=== PATIENT | male | born 1965 | race American Indian/Alaskan Native ===

== ENCOUNTER 2020-11-23 17:41 | Inpatient (IN) | payer SELFPAY ==
[2020-11-23 20:56] LABS: Basophils % (Auto) 0.5 % (0.0-1.8); Eosinophils % (Auto) 0.4 % (0.0-4.3); Hematocrit 47.3 % (35.5-45.6); Hemoglobin 16.7 gm/dl (11.8-15.2); Lymphocytes # (Auto) 0.7 K/mm3 (1.2-5.4); Lymphocytes % (Auto) 10.2 % (13.4-35.0); Mean Corpuscular HGB Conc 35 % (32-34); Mean Corpuscular Volume 98 fl (84-94); Monocytes # (Auto) 0.7 K/mm3 (0.0-0.8); Monocytes % (Auto) 10.9 % (0.0-7.3); Platelet Count 266 K/mm3 (140-440); Red Blood Count 4.85 M/mm3 (3.65-5.03); Red Cell Distribution Width 14.2 % (13.2-15.2)
[2020-11-23 21:17] LABS: Alanine Aminotransferase 127 units/L (7-56); Albumin 4.6 g/dL (3.9-5); Bilirubin,Direct 0.4 mg/dL (0-0.2); Blood Urea Nitrogen 9 mg/dL (9-20); Calcium 9.4 mg/dL (8.4-10.2); Hemolysis Index 48
[2020-11-23 21:18] LABS: BUN/Creatinine Ratio 13
[2020-11-23] MEDS ORDERED: ONDANSETRON 4 MG/2 ML INJ IV STA (22:10)
[2020-11-23] MEDS ORDERED: MORPHINE 4 MG/1 ML INJ IV STA (22:10)
[2020-11-23] MEDS ORDERED: SODIUM CHLORIDE 0.9% 1000 ML 1,000 ML IV ONE (22:10)
--- NOTE | 2020-11-23 22:17 | Emergency Department Report ---
ED Abdominal Pain HPI - General Chief Complaint: Abdominal Pain Stated Complaint: ABD PAIN, VOMITING Time Seen by Provider: 11/23/20 19:59 Source: patient Mode of arrival: Ambulatory Limitations: No Limitations - History of Present Illness Initial Comments: 55-year-old -[place] male alcoholic presents emergency department complaining of having increased EtOH utilization of the holidays and since that time is reports a 1 to 1-1/2-day history of nausea vomiting and abdominal pain. States that the symptoms actually off and on. Ports no diarrhea, no fever, chills, sweats does have a explain his weakness and fatigue. Pain is sharp and throbbing worse with palpation normal eating MD Complaint: abdominal pain -: Gradual Location: epigastric Radiation: epigastric Migration to: no migration Quality: aching, dull Consistency: constant Associated Symptoms: denies: dysuria, hematemesis, melena, hematuria, anorexia - Related Data Previous Rx's Medication Instructions Recorded Last Taken Type Folic Acid [Folvite] 1 mg PO DAILY #30 tablet 11/26/20 Unknown Rx Multivitamin Tab [Multiple Vitamin 1 each PO DAILY #30 tablet 11/26/20 Unknown Rx TAB (Theragran)] Thiamine [Vitamin B-1] 100 mg PO QDAY #30 tablet 11/26/20 Unknown Rx amLODIPine 5 mg PO QDAY #30 tablet 11/26/20 Unknown Rx traMADoL [Ultram 50 MG tab] 50 mg PO Q6HR PRN #12 tablet 11/26/20 Unknown Rx Allergies Allergy/AdvReac Type Severity Reaction Status Date / Time No Known Allergies Allergy Unverified 11/23/20 18:50 ED Review of Systems ROS: Stated complaint: ABD PAIN, VOMITING Other details as noted in HPI Comment: All other systems reviewed and negative ED Past Medical Hx - Past Medical History Previous Medical History?: No - Surgical History Past Surgical History?: No - Medications Home Medications: Home Medications Medication Instructions Recorded Confirmed Last Taken Type Folic Acid [Folvite] 1 mg PO DAILY #30 tablet 11/26/20 Unknown Rx Multivitamin Tab [Multiple Vitamin 1 each PO DAILY #30 tablet 11/26/20 Unknown Rx TAB (Theragran)] Thiamine [Vitamin B-1] 100 mg PO QDAY #30 tablet 11/26/20 Unknown Rx amLODIPine 5 mg PO QDAY #30 tablet 11/26/20 Unknown Rx traMADoL [Ultram 50 MG tab] 50 mg PO Q6HR PRN #12 tablet 11/26/20 Unknown Rx ED Physical Exam - General Limitations: No Limitations General appearance: alert, in no apparent distress - Head Head exam: Present: atraumatic, normocephalic - Eye Eye exam: Present: normal appearance, PERRL, EOMI Pupils: Present: normal accommodation - ENT ENT exam: Present: normal exam, normal orophraynx, mucous membranes moist, TM's normal bilaterally - Neck Neck exam: Present: normal inspection, full ROM - Respiratory Respiratory exam: Present: normal lung sounds bilaterally, chest wall tenderness. Absent: respiratory distress, wheezes, rales - Cardiovascular Cardiovascular Exam: Present: regular rate, normal rhythm. Absent: systolic murmur, diastolic murmur, rubs, gallop - GI/Abdominal GI/Abdominal exam: Present: soft, normal bowel sounds - Rectal Rectal exam: Present: deferred - Extremities Exam Extremities exam: Present: normal inspection, normal capillary refill - Back Exam Back exam: Present: normal inspection. Absent: CVA tenderness (R), CVA tendern ess (L) - Neurological Exam Neurological exam: Present: alert, oriented X3, CN II-XII intact - Psychiatric Psychiatric exam: Present: normal affect, normal mood - Skin Skin exam: Present: warm, dry, intact, normal color. Absent: rash ED Course Vital Signs 11/23/20 11/24/20 18:51 01:38 Temperature 98.1 F 97.9 F Pulse Rate 71 84 Respiratory 20 18 Rate Blood Pressure 162/88 Blood Pressure 152/84 [Left] O2 Sat by Pulse 100 99 Oximetry ED Medical Decision Making - Lab Data Result diagrams: 11/25/20 07:36 11/25/20 07:36 - Radiology Data Radiology results: report reviewed - Medical Decision Making This patient presents with abdominal pain appears to be secondary to panc reatitis.. This 55-year-old -[place]an alcoholic presents to the ED for abdominal pain nausea vomiting and was found to have a urgent etiology for the abdominal pain. I have a very low suspicion for appendicitis, ischemic bowel, bowel perforation, or any other life threatening disease. I have discussed with the patient the level of uncertainty with undifferentiated abdominal pain and based on the findings of his need for admission was warranted. Case was discussed with the hospitalist as well as the attending who agrees with recommendation for admission. I discussed with the patient that this presentation today for abdominal pain could represent a significant risk for an acute abdominal process. Although the tests in the ED 2 points of pancreatitis there is still a possibility of a process such as appendicitis, diverticulitis, cholecystitis, ulcer, early bowel obstruction, mesenteric ischemia, kidney stone, or even kidney infection which could subsequently cause disability or . The patient understands this risk and need for admission for treatment and observation due to the possibility of significant surgical or medical process. . Critical care attestation.: If time is entered above; I have spent that time in minutes in the direct care of this critically ill patient, excluding procedure time. ED Disposition Clinical Impression: Pancreatitis, acute, H/O ETOH abuse, Pancreatitis, Alcohol abuse Disposition: 09 OP ADMIT IP TO THIS HOSP Is pt being admited?: No Does the pt Need Aspirin: No Condition: Stable
[2020-11-24] MEDS ORDERED: ACETAMINOPHEN 325 MG TAB PO PRN (00:16)
[2020-11-24] MEDS ORDERED: MORPHINE 2 MG/1 ML INJ IV PRN (00:16)
[2020-11-24] MEDS ORDERED: hydrALAZINE 20 MG/1 ML INJ IV PRN (00:18)
[2020-11-24] MEDS ORDERED: LORazepam 2 MG/ML VIAL IV PRN (00:19)
[2020-11-24] MEDS ORDERED: THIAMINE 100 MG, FOLIC ACID 1 MG, MULTIPLE VITAMIN INJ, ADULT 10 ML in SODIUM CHLORIDE ... IV ONE (00:20)
--- NOTE | 2020-11-24 00:25 | History and Physical Report ---
History of Present Illness Date of examination: 11/24/20 Date of admission: 11/24/2020 Chief complaint: Abdominal pain History of present illness: 55-year-old -[place] Islander male alcoholic was brought to the emergency room because of having increased EtOH utilization of the holidays and since that time is reports a 1 to 1-1/2-day history of nausea vomiting and abdominal pain. States that the symptoms actually off and on. Ports no diarrhea, no fever, chills, sweats does have a explain his weakness and fatigue. Pain is sharp and throbbing worse with palpation normal eating In the emergency room patient is found to have acute pancreatitis. Patient lipase is 2255, AST 88 and ALT 127 Past History Past Medical History: other (Alcoholic) Medications and Allergies Allergies Allergy/AdvReac Type Severity Reaction Status Date / Time No Known Allergies Allergy Unverified 11/23/20 18:50 Review of Systems Gastrointestinal: abdominal pain, nausea, vomiting Exam - Constitutional Vitals: Temp Pulse Resp BP Pulse Ox 98.1 F 71 20 162/88 100 11/23/20 18:51 11/23/20 18:51 11/23/20 18:51 11/23/20 18:51 11/23/20 18:51 General appearance: Present: no acute distress, well-nourished - EENT Eyes: Present: PERRL ENT: hearing intact, clear oral mucosa - Neck Neck: Present: supple, normal ROM - Respiratory Respiratory effort: normal Respiratory: bilateral: CTA - Cardiovascular Heart Sounds: Present: S1 & S2. Absent: rub, click - Extremities Extremities: pulses symmetrical, No edema Peripheral Pulses: within normal limits - Abdominal General gastrointestinal: Present: soft, tender, non-distended, normal bowel sounds Male genitourinary: Present: normal - Integumentary Integumentary: Present: clear, warm, dry - Musculoskeletal Musculoskeletal: gait normal, strength equal bilaterally - Psychiatric Psychiatric: appropriate mood/affect, intact judgment & insight - Neurologic Neurologic: CNII-XII intact, moves all extremities Results - Labs CBC & Chem 7: 11/23/20 20:34 11/23/20 20:34 Labs: Laboratory Last Values WBC 6.7 K/mm3 (4.5-11.0) 11/23/20 20:34 RBC 4.85 M/mm3 (3.65-5.03) 11/23/20 20:34 Hgb 16.7 gm/dl (11.8-15.2) H 11/23/20 20:34 Hct 47.3 % (35.5-45.6) H 11/23/20 20:34 MCV 98 fl (84-94) H 11/23/20 20:34 MCH 34 pg (28-32) H 11/23/20 20:34 MCHC 35 % (32-34) H 11/23/20 20:34 RDW 14.2 % (13.2-15.2) 11/23/20 20:34 Plt Count 266 K/mm3 (140-440) 11/23/20 20:34 Lymph % (Auto) 10.2 % (13.4-35.0) L 11/23/20:34 [place] % (Auto) 10.9 % (0.0-7.3) H 11/23/20 20:34 Eos % (Auto) 0.4 % (0.0-4.3) 11/23/20:34 Baso % (Auto) 0.5 % (0.0-1.8) 11/23/20:34 Lymph # (Auto) 0.7 K/mm3 (1.2-5.4) L 11/23/20:34 [place] # (Auto) 0.7 K/mm3 (0.0-0.8) 11/23/20 20:34 Eos # (Auto) 0.0 K/mm3 (0.0-0.4) 11/23/20:34 Baso # (Auto) 0.0 K/mm3 (0.0-0.1) 11/23/20 20:34 Seg Neutrophils % 78.0 % (40.0-70.0) H 11/23/20 20:34 Seg Neutrophils # 5.3 K/mm3 (1.8-7.7) 11/23/20 20:34 Sodium 138 mmol/L (137-145) 11/23/20 20:34 Potassium 4.1 mmol/L (3.6-5.0) 11/23/20 20:34 Chloride 96.6 mmol/L (98-107) L 11/23/20 20:34 Carbon Dioxide 24 mmol/L (22-30) 11/23/20 20:34 Anion Gap 22 mmol/L 11/23/20 20:34 BUN 9 mg/dL (9-20) 11/23/20 20:34 Creatinine 0.7 mg/dL (0.8-1.3) L 11/23/20 20:34 Estimated GFR > 60 ml/min 11/23/20 20:34 BUN/Creatinine Ratio 13 % 11/23/20 20:34 Glucose 92 mg/dL (75-100) 11/23/20 20:34 Calcium 9.4 mg/dL (8.4-10.2) 11/23/20 20:34 Total Bilirubin 1.60 mg/dL (0.1-1.2) H 11/23/20 20:34 Direct Bilirubin 0.4 mg/dL (0-0.2) H 11/23/20 20:34 Indirect Bilirubin 1.2 mg/dL 11/23/20 20:34 AST 88 units/L (5-40) H 11/23/20 20:34 ALT 127 units/L (7-56) H 11/23/20 20:34 Alkaline Phosphatase 90 units/L (35-129) 11/23/20 20:34 Total Protein 7.0 g/dL (6.3-8.2) 11/23/20 20:34 Albumin 4.6 g/dL (3.9-5) 11/23/20 20:34 Albumin/Globulin Ratio 1.9 % 11/23/20 20:34 Lipase 2255 units/L (13-60) H 11/23/20 20:34 Assessment and Plan VTE prophylaxis?: Chemical Plan of care discussed with patient/family: Yes - Patient Problems (1) Pancreatitis Status: Acute Plan to address problem: Admit the patient to the medical floor. N.p.o. D5 half-normal saline at the rate of 100 cc/h. Protonix 40 mg IV every 12 hours. Zofran 4 mg every 8 hours as needed. Dilaudid 1 mg IV every 3 hours as needed. We will recheck the lipase CMP in the morning. Will consult GI if needed in the morning. We also do a CT scan of the abdomen and pelvis (2) Alcohol abuse Status: Acute Plan to address problem: Patient is counseled regarding quit drinking. Will refer the patient to the outpatient Alcoholics Anonymous group (3) Transaminitis Status: Acute Plan to address problem: We will recheck CMP in the morning. If needed will consult GI in the morning. Patient counseled to quit drinking alcohol (4) DVT prophylaxis Status: Acute Plan to address problem: Heparin 5000 units subcu every 8 hours for DVT prophylaxis. Protonix 40 mg IV every 12 hours for GI prophylaxis. Patient is a full code
[2020-11-24] MEDS: HYDROmorphone 1 MG/1 ML INJ IV PRN ×6 (01:01→21:14)
--- NOTE | 2020-11-24 02:10 | Cat Scan Report ---
CT ABDOMEN AND PELVIS WITH CONTRAST INDICATION / CLINICAL INFORMATION: Question possible Pancreatitis. TECHNIQUE: Axial CT images were obtained through the abdomen and pelvis after 100 cc Omnipaque 300 milligrams pe rcent IV contrast. All CT scans at this location are performed using CT dose reduction for ALARA by means of automated exposure control. COMPARISON: None available. FINDINGS: LOWER CHEST: No significant abnormality. LIVER: Diffuse fatty infiltration of liver. GALLBLADDER: No significant abnormality. BILE DUCTS: No significant abnormality. PANCREAS: Peripancreatic inflammatory changes present with minimum fluid. No evidence of an abscess o r pseudocyst SPLEEN: No significant abnormality. ADRENALS: No significant abnormality. RIGHT KIDNEY and URETER: No significant abnormality. LEFT KIDNEY and URETER: Punctate left renal calculus STOMACH and SMALL BOWEL: No significant abnormality. COLON: No significant abnormality. APPENDIX: No significant abnormality. PERITONEUM: No free fluid. No free air. No fluid collection. LYMPH NODES: No significant adenopathy. AORTA and ARTERIES: No significant abnormality. IVC and VEINS: No significant abnormality. URINARY BLADDER: No significant abnormality. REPRODUCTIVE ORGANS: No significant abnormality. ADDITIONAL FINDINGS: None. SKELETAL SYSTEM: No significant abnormality. IMPRESSION: 1. CT findings consistent with acute pancreatitis 2. Hepatic steatosis 3. Left nephrolithiasis Signer Name: Manan Duckworth MD Signed: 11/24/2020 2:05 AM Workstation Name: [id number]
[2020-11-24] MEDS: HEPARIN 5,000 UNIT/1 ML VIAL SUB-Q SCH ×3 (06:18→21:13)
[2020-11-24] MEDS: IPRATROPIUM/ALBUTEROL SULFATE 3 ML AMPUL.NEB IH SCH ×4 (07:50→20:21)
[2020-11-24] MEDS: PANTOPRAZOLE 40 MG INJ IV SCH ×3 (08:09→21:14)
[2020-11-24] MEDS: D5W/0.45% NACL 1,000 ML IV SCH ×2 (13:47→21:12)
[2020-11-24] MEDS: NICOTINE 14 MG/24 HR PATCH TD SCH (13:59)
--- NOTE | 2020-11-24 15:37 | Event Note ---
Date: 11/24/20 Patient with acute pancreatitis likely due to alcohol abuse. I have seen and examined him. Consult GI. Keep NPO. Tristan re-evaluate in am.
--- NOTE | 2020-11-24 16:49 | Gastroenterology Consultation ---
History of Present Illness - Reason for Consult Consult date: 11/24/20 acute pancreatitis Requesting physician: LYNNETTE KEYS - History of Present Illness The patient is a 55 yo aam who presents with abdominal pain and nausea/vomiting, found to have acute pancreatitis on admission. Pt with h/o alcohol abuse (pint of vodka daily), progressive worsening of abd pain last 1-2 weeks. states he had similar sx's/diagnosis ~8 years ago due to alcohol pancreatitis. last alcohol intake day prior to admission. no fevers/chills. tolerating liquids/water at bedside w/o n/v. Past History Past Medical History: other (Alcoholic) Medications and Allergies Allergies Allergy/AdvReac Type Severity Reaction Status Date / Time No Known Allergies Allergy Unverified 11/23/20 18:50 Home Medications Medication Instructions Recorded Confirmed Last Taken Type No Known Home Medications [No 11/24/20 11/24/20 Unknown History Reported Home Medications] Active Meds: Active Medications Acetaminophen (Acetaminophen 325 Mg Tab) 650 mg PO Q4H PRN PRN Reason: Pain MILD(1-3)/Fever >100.5/ROSENBAUM Albuterol/Ipratropium (Ipratropium/Albuterol Sulfate 3 Ml Ampul.Neb) 1 ampul IH Q6HRT PIYUSH Last Admin: 11/24/20 15:13 Dose: 1 ampul Documented by: Heparin Sodium (Porcine) (Heparin 5,000 Unit/1 Ml Vial) 5,000 unit SUB-Q Q8HR PIYUSH Last Admin: 11/24/20 13:30 Dose: 5,000 unit Documented by: Hydralazine HCl (Hydralazine 20 Mg/1 Ml Inj) 10 mg IV Q6H PRN PRN Reason: htn Hydromorphone HCl (Hydromorphone 1 Mg/1 Ml Inj) 1 mg IV Q3H PRN PRN Reason: Pain , Severe (7-10) Last Admin: 11/24/20 12:48 Dose: 1 mg Documented by: Dextrose/Sodium Chloride (D5/0.45ns) 1,000 mls @ 100 mls/hr IV DIRECT PIYUSH Last Admin: 11/24/20 13:47 Dose: 100 mls/hr Documented by: Thiamine HCl 100 mg/ Folic Acid 1 mg/ Multivitamins/Minerals 10 ml/ Sodium Chloride 1,011.2 mls @ 252.8 mls/hr IV QDAY@2200 [facility] Lorazepam (Lorazepam 2 Mg/Ml Vial) 2 mg IV Q1HR PRN PRN Reason: CIWA-Ar 8-15 Morphine Sulfate (Morphine 2 Mg/1 Ml Inj) 2 mg IV Q4H PRN PRN Reason: Pain, Moderate (4-6) Nicotine (Nicotine 14 Mg/24 Hr Patch) 14 mg TD QDAY [facility] Last Admin: 11/24/20 13:59 Dose: 14 mg Documented by: Ondansetron HCl (Ondansetron 4 Mg/2 Ml Inj) 4 mg IV Q8H PRN PRN Reason: Nausea And Vomiting Pantoprazole Sodium (Pantoprazole 40 Mg Inj) 40 mg IV BID [facility] Last Admin: 11/24/20 12:01 Dose: Not Given Documented by: Sodium Chloride (Sodium Chloride 0.9% 10 Ml Flush Syringe) 10 ml IV BID [facility] Last Admin: 11/24/20 12:02 Dose: 10 ml Documented by: Sodium Chloride (Sodium Chloride 0.9% 10 Ml Flush Syringe) 10 ml IV PRN PRN PRN Reason: LINE FLUSH reviewed/updated patient's home and current medications Review of Systems - Review of Systems All systems: negative (per HPI) Exam - Constitutional Vital Signs: Temp Pulse Resp BP Pulse Ox 98.8 F 58 L 18 134/78 88 11/24/20 16:32 11/24/20 16:32 11/24/20 16:32 11/24/20 16:32 11/24/20 16:32 General appearance: no acute distress - EENT Eyes: PERRL, EOM intact - Respiratory Respiratory effort: normal Respiratory: bilateral: CTA - Cardiovascular Rhythm: regular Heart Sounds: Present: S1 & S2 - Gastrointestinal General gastrointestinal: Present: soft, tender (epigastric ttp), non-distended - Integumentary Integumentary: Present: clear, warm - Psychiatric Psychiatric: appropriate mood/affect - Labs CBC & Chem 7: 11/23/20 20:34 11/23/20 20:34 Lab Results: Laboratory Results - last 24 hr 11/23/20 11/23/20 20:34 20:34 WBC 6.7 RBC 4.85 Hgb 16.7 H Hct 47.3 H MCV 98 H MCH 34 H MCHC 35 H RDW 14.2 Plt Count 266 Lymph % (Auto) 10.2 L [place] % (Auto) 10.9 H Eos % (Auto) 0.4 Baso % (Auto) 0.5 Lymph # (Auto) 0.7 L [place] # (Auto) 0.7 Eos # (Auto) 0.0 Baso # (Auto) 0.0 Seg Neutrophils % 78.0 H Seg Neutrophils # 5.3 Sodium 138 Potassium 4.1 Chloride 96.6 L Carbon Dioxide 24 Anion Gap 22 BUN 9 Creatinine 0.7 L Estimated GFR > 60 BUN/Creatinine Ratio 13 Glucose 92 Calcium 9.4 Total Bilirubin 1.60 H Direct Bilirubin 0.4 H Indirect Bilirubin 1.2 AST 88 H ALT 127 H Alkaline Phosphatase 90 Total Protein 7.0 Albumin 4.6 Albumin/Globulin Ratio 1.9 Lipase 2255 H - Imaging CT Scan: report reviewed Assessment and Plan 1. Acute pancreatitis - likely from alcohol. elevated liver enzymes which could be alcohol related liver disease, will obtain RUQ US to evaluate for gallstones. cont IVF's, supportive care, and can try clears as tolerated. trend liver enzymes and monitor for alcohol withdrawal.
[2020-11-24] MEDS: ONDANSETRON 4 MG/2 ML INJ IV PRN ×2 (16:56→21:13)
[2020-11-24] MEDS ORDERED: NICOTINE 14 MG/24 HR PATCH TD ONE (21:59)
[2020-11-24] MEDS ORDERED: THIAMINE 100 MG, FOLIC ACID 1 MG, MULTIPLE VITAMIN INJ, ADULT 10 ML in SODIUM CHLORIDE ... IV SCH (22:00)
[2020-11-25] MEDS: HEPARIN 5,000 UNIT/1 ML VIAL SUB-Q SCH ×3 (05:28→21:31)
[2020-11-25 07:57] LABS: Basophils % (Auto) 0.3 % (0.0-1.8); Eosinophils # (Auto) 0.3 K/mm3 (0.0-0.4); Eosinophils % (Auto) 4.9 % (0.0-4.3); Hematocrit 44.6 % (35.5-45.6); Hemoglobin 15.8 gm/dl (11.8-15.2); Lymphocytes # (Auto) 1.4 K/mm3 (1.2-5.4); Lymphocytes % (Auto) 22.7 % (13.4-35.0); Mean Corpuscular HGB Conc 36 % (32-34); Mean Corpuscular Volume 98 fl (84-94); Monocytes # (Auto) 0.8 K/mm3 (0.0-0.8); Monocytes % (Auto) 12.7 % (0.0-7.3); Platelet Count 208 K/mm3 (140-440); Red Blood Count 4.54 M/mm3 (3.65-5.03); Red Cell Distribution Width 13.8 % (13.2-15.2)
[2020-11-25 08:17] LABS: Alanine Aminotransferase 76 units/L (7-56); Blood Urea Nitrogen 6 mg/dL (9-20); Calcium 8.6 mg/dL (8.4-10.2); Hemolysis Index 85
[2020-11-25 08:20] LABS: BUN/Creatinine Ratio 10
[2020-11-25] MEDS: HYDROmorphone 1 MG/1 ML INJ IV PRN ×2 (09:01→16:07)
[2020-11-25] MEDS: PANTOPRAZOLE 40 MG INJ IV SCH ×2 (09:02→21:31)
[2020-11-25] MEDS: NICOTINE 14 MG/24 HR PATCH TD SCH (09:02)
--- NOTE | 2020-11-25 11:17 | Progress Note ---
Assessment and Plan Assessment and plan: Acute pancreatitis due to alcohol use Abdominal pain improving. Patient was NPO but will start clear liquid since abdominal pain improvbing lipase level down to 281 from 2255 two days ago US abd shows hepatic steatosis but no gallstones Dilaudid prn for pain d/c Morphine, Alcohol use I counseled him on quitting alcohol Transaminitis due to Alcohol use Monitor LFts Full code status Hopefully d/c home in 1-2 days. History Interval history: Patient with acute pancreatitis due to alcohol use less abdominal pain Hospitalist Physical - Constitutional Vitals: Temp Pulse Resp BP Pulse Ox 98.7 F 113 H 20 124/89 98 11/25/20 05:00 11/25/20 05:00 11/25/20 05:00 11/25/20 05:00 11/25/20 09:59 General appearance: Present: no acute distress, well-nourished - EENT Eyes: Present: PERRL ENT: hearing intact - Neck Neck: Present: supple, normal ROM - Respiratory Respiratory: bilateral: CTA, negative: rales, rhonchi, wheezing - Cardiovascular Rhythm: regular Heart Sounds: Present: S1 & S2 (reg). Absent: systolic murmur, rub - Extremities Extremities: No edema - Abdominal General gastrointestinal: soft, tender (mild), non-distended, normal bowel sounds - Integumentary Integumentary: Present: clear, warm, dry - Psychiatric Psychiatric: appropriate mood/affect, intact judgment & insight - Neurologic Neurologic: CNII-XII intact, other (AAO X 3) Results - Labs CBC & Chem 7: 11/25/20 07:36 11/25/20 07:36 Labs: Laboratory Last Values WBC 6.2 K/mm3 (4.5-11.0) 11/25/20 07:36 RBC 4.54 M/mm3 (3.65-5.03) 11/25/20 07:36 Hgb 15.8 gm/dl (11.8-15.2) H 11/25/20 07:36 Hct 44.6 % (35.5-45.6) 11/25/20 07:36 MCV 98 fl (84-94) H 11/25/20 07:36 MCH 35 pg (28-32) H 11/25/20 07:36 MCHC 36 % (32-34) H 11/25/20 07:36 RDW 13.8 % (13.2-15.2) 11/25/20 07:36 Plt Count 208 K/mm3 (140-440) 11/25/20 07:36 Lymph % (Auto) 22.7 % (13.4-35.0) 11/25/20 07:36 [place] % (Auto) 12.7 % (0.0-7.3) H 11/25/20 07:36 Eos % (Auto) 4.9 % (0.0-4.3) H 11/25/20 07:36 Baso % (Auto) 0.3 % (0.0-1.8) 11/25/20 07:36 Lymph # (Auto) 1.4 K/mm3 (1.2-5.4) 11/25/20 07:36 [place] # (Auto) 0.8 K/mm3 (0.0-0.8) 11/25/20 07:36 Eos # (Auto) 0.3 K/mm3 (0.0-0.4) 11/25/20 07:36 Baso # (Auto) 0.0 K/mm3 (0.0-0.1) 11/25/20 07:36 Seg Neutrophils % 59.4 % (40.0-70.0) 11/25/20 07:36 Seg Neutrophils # 3.7 K/mm3 (1.8-7.7) 11/25/20 07:36 Sodium 135 mmol/L (137-145) L 11/25/20 07:36 Potassium 3.7 mmol/L (3.6-5.0) 11/25/20 07:36 Chloride 98.0 mmol/L (98-107) 11/25/20 07:36 Carbon Dioxide 21 mmol/L (22-30) L 11/25/20 07:36 Anion Gap 20 mmol/L 11/25/20 07:36 BUN 6 mg/dL (9-20) L 11/25/20 07:36 Creatinine 0.6 mg/dL (0.8-1.3) L 11/25/20 07:36 Estimated GFR > 60 ml/min 11/25/20 07:36 BUN/Creatinine Ratio 10 % 11/25/20 07:36 Glucose 82 mg/dL (75-100) 11/25/20 07:36 Calcium 8.6 mg/dL (8.4-10.2) 11/25/20 07:36 Total Bilirubin 2.40 mg/dL (0.1-1.2) H 11/25/20 07:36 Direct Bilirubin 0.4 mg/dL (0-0.2) H 11/23/20 20:34 Indirect Bilirubin 1.2 mg/dL 11/23/20 20:34 AST 56 units/L (5-40) H 11/25/20 07:36 ALT 76 units/L (7-56) H 11/25/20 07:36 Alkaline Phosphatase 75 units/L (35-129) 11/25/20 07:36 Total Protein 6.1 g/dL (6.3-8.2) L 11/25/20 07:36 Albumin 4.0 g/dL (3.9-5) 11/25/20 07:36 Albumin/Globulin Ratio 1.9 % 11/25/20 07:36 Lipase 281 units/L (13-60) H 11/25/20 07:36 Nasal Screen MRSA (PCR) Negative (Negative) 11/24/20 Unknown Vega/IV: Voiding Method Toilet Active Medications - Current Medications Current Medications: Generic Name Dose Route Start Last Admin Trade Name Freq PRN Reason Stop Dose Admin Acetaminophen 650 mg 11/24/20 00:16 Acetaminophen 325 Mg Tab PO Q4H PRN Pain MILD(1-3)/Fever >100.5/ROSENBAUM Folic Acid 1 mg 11/26/20 10:00 Folic Acid 1 Mg Tab PO DAILY PIYUSH Heparin Sodium (Porcine) 5,000 unit 11/24/20 06:00 11/25/20 05:28 Heparin 5,000 Unit/1 Ml Vial SUB-Q 5,000 unit Q8HR PIYUSH Administration Hydralazine HCl 10 mg 11/24/20 00:18 Hydralazine 20 Mg/1 Ml Inj IV Q6H PRN htn Dextrose/Sodium Chloride 1,000 mls @ 100 mls/hr 11/24/20 01:00 11/24/20 21:12 D5/0.45ns IV 100 mls/hr DIRECT PIYUSH Administration Thiamine HCl 100 mg/ Folic 1,011.2 mls @ 125 mls/hr 11/25/20 14:00 Acid 1 mg/ Multivitamins/ IV 11/25/20 22:05 Minerals 10 ml/ Sodium ONCE ONE Chloride Lorazepam 2 mg 11/24/20 00:19 Lorazepam 2 Mg/Ml Vial IV Q1HR PRN CARLOS-Jose De Jesus 8-15 Multivitamins 1 each 11/26/20 10:00 Multivitamins ,Therapeutic Tab PO DAILY PIYUSH Nicotine 14 mg 11/24/20 14:00 11/25/20 09:02 Nicotine 14 Mg/24 Hr Patch TD 14 mg QDAY PIYUSH Administration Ondansetron HCl 4 mg 11/24/20 00:16 11/24/20 21:13 Ondansetron 4 Mg/2 Ml Inj IV 4 mg Q8H PRN Administration Nausea And Vomiting Pantoprazole Sodium 40 mg 11/24/20 10:00 11/25/20 09:02 Pantoprazole 40 Mg Inj IV 40 mg BID PIYUSH Administration Sodium Chloride 10 ml 11/24/20 10:00 11/25/20 09:02 Sodium Chloride 0.9% 10 Ml Flush Syringe IV 10 ml BID PIYUSH Administration Sodium Chloride 10 ml 11/24/20 00:16 Sodium Chloride 0.9% 10 Ml Flush Syringe IV PRN PRN LINE FLUSH Thiamine HCl 100 mg 11/26/20 10:00 Thiamine 100 Mg Tab PO QDAY PIYUSH Nutrition/Malnutrition Assess - Dietary Evaluation Nutrition/Malnutrition Findings: Nutrition Notes Start: 11/24/20 08:25 Freq: Status: Active Protocol: Document 11/24/20 08:25 (Rec: 11/24/20 08:26 [id number]) Nutrition Notes Initial or Follow up Brief Note Subjective/Other Information RN screen for skin risk. Jaswinder score 20. No wounds noted in physical assessment. Likely an error. Nutrition Intervention Revisit per MD consult or patient Sign Off request: Additional Comments Please consult if needed
--- NOTE | 2020-11-25 11:56 | Ultrasound Report ---
LIMITED RUQ ABDOMINAL ULTRASOUND INDICATION: elevated liver enzymes, acute pancreatitis. COMPARISON: CT abdomen and pelvis performed 11/24/2020.. FINDINGS: Pancreas: Visualized portions show no significant abnormality. Abdominal Aorta: No significant abnormality. IVC: No significant abnormality. Liver: The liver measures 18.5 cm in length. The liver is moderately echogenic consistent with fatty infiltration. No focal liver lesion is appreciated. Normal hepatopedal blood flow in the main portal vein. Gallbladder: No significant abnormality. Bile ducts: No significant abnormality. Common bile duct measures 2.1 mm. Right kidney: No significant abnormality visualized. Free fluid: None. Additional Findings: None. IMPRESSION: Moderate hepatic steatosis. No evidence for cholelithiasis. Signer Name: Jerson Ramon Jr, MD Signed: 11/25/2020 11:52 AM Workstation Name: [id number]
[2020-11-25] MEDS ORDERED: THIAMINE 100 MG, FOLIC ACID 1 MG, MULTIPLE VITAMIN INJ, ADULT 10 ML in SODIUM CHLORIDE ... IV ONE ×2 (14:00→18:00)
--- NOTE | 2020-11-25 15:28 | Gastroenterology Progress Note ---
Assessment and Plan Acute pancreatitis 2/2 likely alcohol. RUQ US neg for stones. liver enzymes stable (likely alcoholic liver disease). clinically seems to be doing better. advance diet as tolerated and cont supportive care. hopefully can be discharged soon. will sign off, please call as needed or with questions. Subjective Date of service: 11/25/20 Principal diagnosis: acute pancreatitis Interval history: pt c/o abd cramping but overall improved abd pain. tolerating clears. Objective - Constitutional Vitals: Temp Pulse Resp BP Pulse Ox 98.7 F 113 H 20 124/89 98 11/25/20 05:00 11/25/20 05:00 11/25/20 05:00 11/25/20 05:00 11/25/20 09:59 General appearance: no acute distress - Respiratory Respiratory effort: normal Respiratory: bilateral: CTA - Cardiovascular Rhythm: regular - Gastrointestinal General gastrointestinal: Present: soft, tender (epigastric ttp) - Labs CBC & Chem 7: 11/25/20 07:36 11/25/20 07:36 Labs: Laboratory Results - last 24 hr 11/24/20 11/25/20 11/25/20 Unknown 07:36 07:36 WBC 6.2 RBC 4.54 Hgb 15.8 H Hct 44.6 MCV 98 H MCH 35 H MCHC 36 H RDW 13.8 Plt Count 208 Lymph % (Auto) 22.7 [place] % (Auto) 12.7 H Eos % (Auto) 4.9 H Baso % (Auto) 0.3 Lymph # (Auto) 1.4 [place] # (Auto) 0.8 Eos # (Auto) 0.3 Baso # (Auto) 0.0 Seg Neutrophils % 59.4 Seg Neutrophils # 3.7 Sodium 135 L Potassium 3.7 Chloride 98.0 Carbon Dioxide 21 L Anion Gap 20 BUN 6 L Creatinine 0.6 L Estimated GFR > 60 BUN/Creatinine Ratio 10 Glucose 82 Calcium 8.6 Total Bilirubin 2.40 H AST 56 H ALT 76 H Alkaline Phosphatase 75 Total Protein 6.1 L Albumin 4.0 Albumin/Globulin Ratio 1.9 Lipase 281 H Nasal Screen MRSA (PCR) Negative
[2020-11-25] MEDS ORDERED: D5W/0.9% NACL 1,000 ML IV SCH (23:00)
[2020-11-26] MEDS: HYDROmorphone 1 MG/1 ML INJ IV PRN ×2 (00:45→11:20)
[2020-11-26] MEDS: HEPARIN 5,000 UNIT/1 ML VIAL SUB-Q SCH (05:20)
[2020-11-26] MEDS ORDERED: PANTOPRAZOLE 40 MG TAB PO SCH (07:30)
[2020-11-26] MEDS: NICOTINE 14 MG/24 HR PATCH TD SCH (09:10)
[2020-11-26] MEDS ORDERED: MULTIVITAMINS ,THERAPEUTIC TAB PO SCH (10:00)
[2020-11-26] MEDS ORDERED: THIAMINE 100 MG TAB PO SCH (10:00)
[2020-11-26] MEDS ORDERED: amLODIPine 5 MG TAB PO SCH (10:00)
[2020-11-26] MEDS ORDERED: FOLIC ACID 1 MG TAB PO SCH (10:00)
[2020-11-26] MEDS: ONDANSETRON 4 MG/2 ML INJ IV PRN (11:38)
[2020-11-26 11:49] VITALS: BP 142/90
--- NOTE | 2020-11-26 13:31 | Discharge Summary ---
Providers - Providers Date of Admission: 11/24/20 00:17 Date of discharge: 11/26/20 Attending physician: LYNNETTE KEYS 11/24/20 10:14 Consult to Physician [CONS] Urgent Comment: Consulting Provider: HANNA BRAVO Physician Instructions: Reason For Exam: pancreatitis Primary care physician: PIPE LAYER Hospitalization Condition: Stable Hospital course: Patient is 55 yo with history of alcohol abuse. He presented with abdominal pain, nausea and vomiting. He states he has been drinking heavily past few days because of holiday. He was seen and evaluated in Emergency Department. labs show Patient lipase is 2255, AST [address] Abdomen revealed acute pancreatitis. he was started on narcotics, made NPO and admitted. Patient was evaluated by GI Physician. Patient improved, lipase decreased down to 281. He continued to improve, tolerated regular diet so was discharged home on 11/26/20. During stay, his Blood Pressure was elevated several times. He was started on Amlodipine on discharge and asked to follow up with PCP on discharge. Disposition: DC- TO HOME OR SELFCARE Final Discharge Diagnosis (Prints w/discharge instructions): 1.Acute Pancreatitis due to alcohol abuse. 2.Hypertension. 3.Alcohol abuse - Discharge Diagnoses (1) Hyponatremia Status: Acute (2) Alcohol abuse Status: Acute (3) Pancreatitis, acute Status: Acute (4) Transaminitis Status: Acute (5) Hypertension Status: Acute Core Measure Documentation - Palliative Care Palliative Care/ Comfort Measures: Not Applicable - Core Measures Any of the following diagnoses?: none Exam - Constitutional Vitals: Temp Pulse Resp BP Pulse Ox 97.4 F L 85 18 142/90 100 11/26/20 11:20 11/26/20 11:48 11/26/20 11:20 11/26/20 11:48 11/26/20 08:55 Plan Activity: no restrictions Diet: regular Plan of Treatment: 1.Follow up with PCP in 1 week Follow up with: PRIMARY CARE, [Primary Care Provider] - 7 Days Prescriptions: amLODIPine 5 mg PO QDAY #30 tablet Folic Acid [Folvite] 1 mg PO DAILY #30 tablet Multivitamin Tab [Multiple Vitamin TAB (Theragran)] 1 each PO DAILY #30 tablet traMADoL [Ultram 50 MG tab] 50 mg PO Q6HR PRN #12 tablet PRN Reason: Pain Thiamine [Vitamin B-1] 100 mg PO QDAY #30 tablet
== END 2020-11-26 15:46 | disposition home or self-care (01) | DRG 440 ==
LOC: ED 17:41 → 3A 11-24 00:17
PROVIDERS: ADMIT Hospitalist; ATTEND Internal Medicine
DX: K85.20 Alcohol induced acute pancreatitis without necrosis or infection (principal); F10.10 Alcohol abuse, uncomplicated; R74.01 Elevation of levels of liver transaminase levels; Z79.899 Other long term (current) drug therapy
CPT/HCPCS: 36415; 74177; 76705; 80048; 80053; 80076; 83690; 85025; 87641; 94640; 96361; 96374; 96375; 99406; G0378; C9113; J1170; J1644; J2270; J2405; J3411; J7030; J7042; Q9967